=== PATIENT | female | born 1975 | race Hispanic/Latino ===

== ENCOUNTER 2022-04-15 06:47 | Emergency (ER) | payer SELFPAY ==
[~2022-04-15] VITALS: Ht 162.6 cm; Wt 81.6 kg
[~2022-04-15 06:47] MED LIST: MOTRIN IB200 MG
[2022-04-15] MEDS ORDERED: FAMOTIDINE 20 MG/2 ML VIAL IV STA (06:51)
[2022-04-15] MEDS ORDERED: DIPHENHYDRAMINE HCL INJ 50 MG/ML VIAL IV ONE (07:00)
[2022-04-15] MEDS ORDERED: METHYLPREDNISOLONE SOD SUCC 125 MG/2ML VIAL IV ONE (07:00)
[2022-04-15] MEDS ORDERED: SODIUM CHLORIDE 0.9% 1000ML 1,000 ML IV ONE (07:15)
[2022-04-15] MEDS ORDERED: SODIUM CHLORIDE 0.9% 1000ML 1,000 ML ONE (07:15)
[2022-04-15] MEDS ORDERED: PEPCID20 MG PO (07:53)
== END 2022-04-15 08:29 | disposition home or self-care (01) ==
LOC: ER 07:25
DX: L50.9 Urticaria, unspecified (principal); R05.9 Cough, unspecified
CPT/HCPCS: 99283; J1200; J2930; J7030